=== PATIENT | female | born 1940 | race Caucasian/White ===

== ENCOUNTER → 2016-10-27 | Outpatient (CLI) | payer OTHER ==
[~2016-10-27] MED LIST: ASCO-63 PO; ASPCH81X PO; ATOR10TA88 PO; CHOL200010 PO; CYAN100020 PO; FURO-85 PO; GLC/500 PO; HYDR-5688 PO; INSHNI SC; INSHRIE SC; LOSA1TAB38 PO; MULT-190 PO; OMEP40CA41 PO
[2016-10-27 13:28] LABS: BASO % 0.4 %; BASO ABS # 0.03 K/uL (0-0.2); COMPLETE YES; IG% 0.3 %; LYMPH % 8.7 %; LYMPH ABS # 0.61 K/uL (1.2-3.4); MEAN CELL VOLUME 81.1 fL (80-100); MEAN CORPUSCULAR HEMOGLOBIN 27.4 pg (25-34); MEAN CORPUSCULAR HGB CONC 33.8 g/dl (32-36); MEAN PLATELET VOLUME 9.7 fL (7.4-10.4); MONO % 4.3 %; NEUT % 84.3 %; PLATELET COUNT 150 K/uL (130-400); RED BLOOD COUNT 4.93 M/uL (4.2-5.4); WHITE BLOOD COUNT 7.02 K/uL (4.8-10.8)
[2016-10-27 13:36] LABS: PROTHROMBIN TIME (PATIENT) 10.5 SECONDS (9.0-12.0)
[2016-10-27 13:50] LABS: POTASSIUM 3.7 mmol/L (3.5-5.1)
== END | disposition home or self-care (01) ==
LOC: C.LABMFLN 14:12
DX: Z01.812 Encounter for preprocedural laboratory examination (principal)

== ENCOUNTER → 2016-10-30 | Day surgery (SDC) | payer OTHER ==
[2016-10-28 08:51] VITALS: Ht 157.5 cm; Wt 97.7 kg
[~2016-10-30] VITALS: Ht 157.5 cm; Wt 97.7 kg
[~2016-10-30] MED LIST changes: +ATROPINE SULFATE 0.1 MG/ML 5ML SYR IV PRN; +EpHEDrine SULFATE INJ 50 MG/ML AMP IV PRN; +FENTANYL CITRATE INJ 50 MCG/1 ML 2 ML VIAL IV PRN; +FENTANYL CITRATE INJ 50 MCG/1 ML 2 ML VIAL ONE; +FLUMAZENIL 0.1 MG/1 ML 10 ML VIAL IV PRN; +HYDROCODONE/ACETAMOPHEN 5/325MG TAB PO PRN; +HYDROmorphone INJ 2 MG/ML SYR/VIAL IV PRN; +INSULIN HUMAN REGULAR IV ONE; +LABETALOL HCL IV 5 MG/ML 20ML IV PRN; +LACTATED RINGER'S 1000ML 1,000 ML IV SCH; +LIDOCAINE HCL 2% 2 ML VIAL (20MG/ML) ONE; +MEPERIDINE HCL 25 MG/ML CARP IV PRN; +NALOXONE HCL 0.4 MG/1 ML VIAL/CARP IV PRN; +NovoLIN-R INSULIN PER UNIT CHARGE ONE; +OFLOXACIN 0.3% OP SOLN 5 ML BTL ONE; +ONDANSETRON INJ 2 MG/ML 2 ML VIAL IV PRN; +ONDANSETRON INJ 2 MG/ML 2 ML VIAL ONE; +PHENYLEPHRINE 100MCG/ML 5ML SYR IV PRN; +PROPOFOL IV EMULSION 10 MG/ML 20 ML VIAL IV ONE
--- NOTE | 2016-10-30 10:42 | History & Physical Bridge - [place] ---
H&P Re-Evaluation Bridge Note: I have examined the patient, reviewed the History & Physical and in the interval since the performance of the History & Physical I have noted the following changes of clinical significance: No changes noted
--- NOTE | 2016-10-30 11:09 | [facility] Operative Report ---
Operative Report Operative Date Oct 30, 2016. 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 R YADY Specimens NONE I attest to the content of the Intraoperative Record and any orders documented therein. Any exceptions are noted below.
--- NOTE | 2016-10-30 11:11 | Discharge Instructions ---
Discharge Instructions Admission Reason for Admission: Simple Chronic Serous O.m. Right; Mixed Hearing Lo Discharge Discharge Diagnosis / Problem: SAME Discharge Goals Goal(s): Improve function Activity Recommendations Activity Limitations: as noted below DRY R EAR PRECAUTIONS WHILE T-TUBE IN PLACE . Current Hospital Diet Patient's current hospital diet: Discharge Diet Recommended Diet: Regular Diet Procedures Procedures Performed: R M&T (T-TUBE) Pending Studies Studies pending at discharge: no Laboratory Results Hemoglobin A1c Test 09/01/16 09:53 Range/Units Estimated Average Glucose 154 mg/dl Hemoglobin A1c 7.0 H 4.5-5.6 % Medical Emergencies . Who to Call and When: Medical Emergencies: If at any time you feel your situation is an emergency, please call 911 immediately. . Non-Emergent Contact Non-Emergency issues call your: Surgeon . . "Provider Documentation" section prepared by Marvel Polo. VTE Core Measure Inpt VTE Proph given/why not?: SCD's
--- NOTE | 2016-10-30 11:41 | Anesthesia Progress Nt - [facility] ---
Anesthesia Post Op Note Date & Time Oct 30, 2016 at 11:41 Vital Signs Pain Intensity: 0 Vital Signs Past 12 Hours Date Time Temp Pulse Resp B/P Pulse Ox O2 Delivery O2 Flow Rate FiO2 10/30/16 11:19 36.9 64 11 129/59 100 Diffusion Mask 10/30/16 09:38 36.9 67 16 166/71 97 Room Air Notes Mental Status: alert / awake / arousable, participated in evaluation Pt Amnestic to Procedure: Yes Nausea / Vomiting: adequately controlled Pain: adequately controlled Airway Patency, RR, SpO2: stable & adequate BP & HR: stable & adequate Hydration State: stable & adequate Anesthetic Complications: no major complications apparent The patient did well. She was given insulin preoperatively. Postop BSG was 154.
--- NOTE | 2016-10-30 11:41 | OPERATIVE REPORT ---
DATE OF OPERATION: 10/30/2016 PREOPERATIVE DIAGNOSES: 1. Right chronic serous otitis media. 2. Right Eustachian tube dysfunction. 3. Right mixed hearing loss. POSTOPERATIVE DIAGNOSES: 1. Right chronic serous otitis media. 2. Right Eustachian tube dysfunction. 3. Right mixed hearing loss. PROCEDURES: Right myringotomy and tube placement with T-tube. SURGEON: Dr. Polo. ANESTHESIA: General laryngeal mask airway. ESTIMATED BLOOD LOSS: Zero. FINDINGS: Right serous middle ear effusion. SPECIMENS: None. COMPLICATIONS: None. INDICATIONS FOR THE PROCEDURE: The patient is a very pleasant 76-year-old female with right chronic serous otitis media which has not responded to steroids. She was found to have mixed hearing loss with a fairly large conductive component. She presents for the above-mentioned procedure on an outpatient elective basis. DETAILS OF PROCEDURE: After informed consent had been obtained from the patient, the patient was wheeled to the operating room and placed on the operative table in the supine position. Monitors were placed after induction of general anesthesia via laryngeal mask airway. The patient's head was gently turned to the left and a speculum was inserted into the right external auditory canal. Operating microscope was wheeled in and used to perform the procedure. A cerumen loop was used to remove excess cerumen. A myringotomy knife was used to make a radial incision in the anterior inferior quadrant of the tympanic membrane and the middle ear space was suctioned free off serous middle ear effusion. A silicone T-tube was then placed. Floxin drops were instilled into the middle ear space and a cotton ball was placed into the conchal bowl. This marked the end of the case. The patient tolerated the procedure well, there were no apparent complications. The patient had her laryngeal mask airway removed and was transferred to the recovery room in stable condition. I attest to the content of the Intraoperative Record and any orders documented therein. Any exceptio ns are noted below.
[2016-10-30 12:27] VITALS: BP 144/64; PULSE 55; TEMP 36.8; O2SAT 97
== END | disposition home or self-care (01) ==
LOC: X.SURG 09:08
DX: H65.21 Chronic serous otitis media, right ear (principal); H90.8 Mixed conductive and sensorineural hearing loss, unspecified; E11.9 Type 2 diabetes mellitus without complications

== ENCOUNTER → 2016-12-28 | Outpatient (CLI) | payer OTHER ==
[~2016-12-28] MED LIST changes: +ATOR10TA82 PO; -ATOR10TA88 PO; -ATROPINE SULFATE 0.1 MG/ML 5ML SYR IV PRN; -EpHEDrine SULFATE INJ 50 MG/ML AMP IV PRN; -FENTANYL CITRATE INJ 50 MCG/1 ML 2 ML VIAL IV PRN; -FENTANYL CITRATE INJ 50 MCG/1 ML 2 ML VIAL ONE; -FLUMAZENIL 0.1 MG/1 ML 10 ML VIAL IV PRN; -HYDROCODONE/ACETAMOPHEN 5/325MG TAB PO PRN; -HYDROmorphone INJ 2 MG/ML SYR/VIAL IV PRN; -INSULIN HUMAN REGULAR IV ONE; -LABETALOL HCL IV 5 MG/ML 20ML IV PRN; -LACTATED RINGER'S 1000ML 1,000 ML IV SCH; -LIDOCAINE HCL 2% 2 ML VIAL (20MG/ML) ONE; -MEPERIDINE HCL 25 MG/ML CARP IV PRN; -NALOXONE HCL 0.4 MG/1 ML VIAL/CARP IV PRN; -NovoLIN-R INSULIN PER UNIT CHARGE ONE; -OFLOXACIN 0.3% OP SOLN 5 ML BTL ONE; -ONDANSETRON INJ 2 MG/ML 2 ML VIAL IV PRN; -ONDANSETRON INJ 2 MG/ML 2 ML VIAL ONE; -PHENYLEPHRINE 100MCG/ML 5ML SYR IV PRN; -PROPOFOL IV EMULSION 10 MG/ML 20 ML VIAL IV ONE
[2016-12-28 13:35] LABS: CALCIUM 10.1 mg/dl (8.5-10.1); CARBON DIOXIDE 31 mmol/L (21-32); CHLORIDE 103 mmol/L (98-107); GLUCOSE 153 mg/dl (70-99); SODIUM 140 mmol/L (136-145)
[2016-12-28 14:05] LABS: ESTIMATED AVERAGE GLUCOSE 151 mg/dl; HA1C FLAG Normal (Normal)
[2016-12-28 14:07] LABS: BLOOD UREA NITROGEN 17 mg/dl (7-18); BUN/CREATININE RATIO 18.4 (10-20); PHOSPHORUS 2.9 mg/dl (2.5-4.9)
== END | disposition home or self-care (01) ==
LOC: C.LABMFLN 09:29
PROVIDERS: ATTEND Family Medicine
DX: E11.49 Type 2 diabetes mellitus with other diabetic neurological complication (principal)

== ENCOUNTER → 2017-04-06 | Outpatient (CLI) | payer OTHER ==
[~2017-04-06] MED LIST changes: -ATOR10TA82 PO; +ATOR10TA88 PO
[2017-04-06 13:36] LABS: ESTIMATED AVERAGE GLUCOSE 151 mg/dl; HA1C FLAG Normal (Normal)
== END | disposition home or self-care (01) ==
LOC: C.LABMFLN 09:56
PROVIDERS: ATTEND Family Medicine
DX: E11.49 Type 2 diabetes mellitus with other diabetic neurological complication (principal)

== ENCOUNTER → 2017-07-09 | Outpatient (CLI) | payer OTHER ==
[2017-07-09 13:33] LABS: ESTIMATED AVERAGE GLUCOSE 140 mg/dl; HA1C FLAG Normal (Normal)
[2017-07-09 13:57] LABS: BLOOD UREA NITROGEN 16 mg/dl (7-18); BUN/CREATININE RATIO 19.5 (10-20); CARBON DIOXIDE 30 mmol/L (21-32); CHLORIDE 103 mmol/L (98-107); CREATININE 0.83 mg/dl (0.60-1.20); GLUCOSE 69 mg/dl (70-99); POTASSIUM 4.1 mmol/L (3.5-5.1); SODIUM 137 mmol/L (136-145)
[2017-07-09 14:14] LABS: CHOLESTEROL 117 mg/dl (0-200); HDL CHOLESTEROL 39 mg/dl; LDL CHOLESTEROL CALCULATED 47 mg/dl; TRIGLYCERIDES 157 mg/dl (0-150); VERY LOW DENSITY LIPOPROT CALC 31 mg/dl
[2017-07-09 14:32] LABS: RATIO 26.6 mcg/mg (0-30.0)
== END | disposition home or self-care (01) ==
LOC: C.LABMFLN 11:23
PROVIDERS: ATTEND Family Medicine
DX: E11.49 Type 2 diabetes mellitus with other diabetic neurological complication (principal); E78.5 Hyperlipidemia, unspecified

== ENCOUNTER → 2017-10-20 | Outpatient (CLI) | payer OTHER ==
[~2017-10-20] MED LIST changes: +ATOR10TA82 PO; -ATOR10TA88 PO
[2017-10-20 18:09] LABS: ALBUMIN 3.6 gm/dl (3.4-5.0); BLOOD UREA NITROGEN 14 mg/dl (7-18); CALCIUM 10.1 mg/dl (8.5-10.1); CARBON DIOXIDE 27 mmol/L (21-32); CREATININE 0.74 mg/dl (0.60-1.20); GLUCOSE 97 mg/dl (70-99); PHOSPHORUS 2.7 mg/dl (2.5-4.9); POTASSIUM 4.2 mmol/L (3.5-5.1); SODIUM 136 mmol/L (136-145)
[2017-10-21 06:21] LABS: HEMOGLOBIN A1C 6.9 % (4.5-5.6)
== END | disposition home or self-care (01) ==
LOC: C.LABMFLN 10:55
PROVIDERS: ATTEND Family Medicine
DX: E11.49 Type 2 diabetes mellitus with other diabetic neurological complication (principal)

== ENCOUNTER → 2018-01-27 | Outpatient (CLI) | payer OTHER ==
[2018-01-27 13:42] LABS: HEMOGLOBIN A1C 6.7 % (4.5-5.6)
== END | disposition home or self-care (01) ==
LOC: C.LABMFLN 09:43
PROVIDERS: ATTEND Family Medicine
DX: E11.49 Type 2 diabetes mellitus with other diabetic neurological complication (principal)